=== PATIENT | female | born 1970 | race African-American/Black ===

== ENCOUNTER 2018-12-06 01:41 | Emergency (ER) | payer OTHER, MEDICAID ==
[~2018-12-06] VITALS: Ht 160 cm; Wt 68.0 kg
[2018-12-06] MEDS ORDERED: PROZAC20 MG PO (01:50)
[2018-12-06] MEDS ORDERED: LABETALOL HCL100 MG PO (01:50)
[2018-12-06] MEDS ORDERED: ASPIR 8181 M1 PO (01:51)
[2018-12-06] MEDS ORDERED: TOPAMAX 25 MG T25 M1 PO (03:23)
[2018-12-06] MEDS ORDERED: COMPAZINE10 MG PO (03:23)
[2018-12-06 03:31] VITALS: BP 140/79
== END 2018-12-06 03:32 | disposition home or self-care (01) ==
LOC: M.ERS 01:41
DX: G43.909 Migraine, unspecified, not intractable, without status migrainosus (principal); I10 Essential (primary) hypertension; Z90.710 Acquired absence of both cervix and uterus; Z88.6 Allergy status to analgesic agent

== ENCOUNTER → 2018-12-15 | Outpatient (CLI) | payer OTHER, MEDICAID ==
[~2018-12-15] MED LIST: ASPIR 8181 M1 PO; COMPAZINE10 MG PO; LABETALOL HCL100 MG PO; PROZAC20 MG PO; TOPAMAX 25 MG T25 M1 PO
== END ==
LOC: M.LAB 11:18
DX: R51 Headache (principal); R20.2 Paresthesia of skin

== ENCOUNTER 2019-08-13 07:53 | Emergency (ER) | payer OTHER, MEDICAID ==
[~2019-08-13] VITALS: Ht 160 cm; Wt 68.0 kg
[2019-08-13] MEDS ORDERED: ZESTRIL20 MG PO (08:07)
[2019-08-13] MEDS ORDERED: NORVASC5 M1 PO (08:08)
[2019-08-13] MEDS ORDERED: HYDROCHLOROTHIA25 M2 PO (08:08)
[2019-08-13] MEDS ORDERED: FLONASE 0.05%50 MCG NARES (08:08)
[2019-08-13 08:44] LABS: ABSOLUTE BASOPHILS 0.1 thou/uL (0.0-0.2); ABSOLUTE EOSINOPHILS 0.2 thou/uL (0.0-0.7); ABSOLUTE LYMPHOCYTES 1.4 thou/uL (0.8-5.3); ABSOLUTE MONOCYTES 0.4 thou/uL (0.0-1.2); ABSOLUTE NEUTROPHILS 3.6 thou/uL (1.6-8.1); BASOPHILS 0.9 %; EOSINOPHILS 3.2 %; HEMATOCRIT 40.7 % (37.0-47.0); HEMOGLOBIN 13.6 gm/dL (12.0-15.0); LYMPHOCYTES 24.2 %; MCH 26.3 pg (26.0-34.0); MCHC 33.4 g/dL (28.0-37.0); MCV 78.7 fL (80.0-100.0); MONOCYTES 6.8 %; MPV 7.7 fl. (7.2-11.1); NUCLEATED RBCS 0 /100WBC; PLATELET COUNT* 388 thou/uL (150-400); POLYS 64.9 %; RBC 5.17 mil/uL (4.20-5.00); RDW-CV 13.7 % (10.5-14.5); WBC 5.6 thou/uL (4.0-11.0)
[2019-08-13 08:52] LABS: CALCIUM 9.7 mg/dL (8.5-10.1); CREATININE 1.1 mg/dL (0.6-1.3); POTASSIUM 3.2 mmol/L (3.5-5.1)
[2019-08-13 08:57] LABS: ALBUMIN 3.5 g/dL (3.4-5.0); TOTAL BILIRUBIN 0.5 mg/dL (<0.1-1.0)
[2019-08-13] MEDS ORDERED: PERCOCET 5-3251 EACH PO (10:01)
[2019-08-13 10:10] VITALS: BP 145/77
== END 2019-08-13 10:13 | disposition home or self-care (01) ==
LOC: M.ERS 07:53
PROVIDERS: Family Medicine
DX: G43.909 Migraine, unspecified, not intractable, without status migrainosus (principal); D35.4 Benign neoplasm of pineal gland; I10 Essential (primary) hypertension; F32.9 Major depressive disorder, single episode, unspecified; Z90.710 Acquired absence of both cervix and uterus; Z98.890 Other specified postprocedural states; Z88.6 Allergy status to analgesic agent